=== PATIENT | male | born 1985 | race Caucasian/White ===

== ENCOUNTER 2016-10-22 08:42 | Emergency (ER) | payer MEDICAID ==
[~2016-10-22] VITALS: Ht 165.1 cm; Wt 75.3 kg
[2016-10-22 08:46] VITALS: BP 101/63
[2016-10-22] MEDS ORDERED: KETOROLAC 30 MG/1 ML IM ONE (09:00)
[2016-10-22] MEDS ORDERED: KETOROLAC 30 MG/1 ML ONE (09:21)
== END 2016-10-22 10:07 | disposition home or self-care (01) ==
LOC: ED 10:01
DX: S83.421A Sprain of lateral collateral ligament of right knee, initial encounter (principal); X58.XXXA Exposure to other specified factors, initial encounter; Y93.55 Activity, bike riding; Y92.488 Other paved roadways as the place of occurrence of the external cause; Y99.8 Other external cause status
CPT/HCPCS: 29505; 73564; 96372; 99284; J1885

== ENCOUNTER 2017-01-16 14:36 | Emergency (ER) | payer MEDICAID ==
[~2017-01-16] VITALS: Ht 170.2 cm; Wt 71.0 kg
[2017-01-16] MEDS ORDERED: HYDROcodone/APAP 5/325 TABLET PO ONE (15:30)
[2017-01-16] MEDS ORDERED: HYDROcodone/APAP 5/325 TABLET ONE (15:31)
[2017-01-16 17:06] VITALS: BP 132/70
== END 2017-01-16 17:09 | disposition home or self-care (01) ==
LOC: ED 17:03
DX: M26.622 Arthralgia of left temporomandibular joint (principal); F12.10 Cannabis abuse, uncomplicated
CPT/HCPCS: 70486; 99284